=== PATIENT | female | born 2000 ===

== ENCOUNTER 2021-08-24 18:31 | Inpatient (IN) | payer MEDICAID, OTHER ==
[2021-08-24] MEDS ORDERED: ACETAMINOPHEN TAB 325 MG TAB PO PRN (18:41)
[2021-08-24] MEDS ORDERED: MAG HYDROX/AL HYDROX/SIMETH 30 ML CUP PO PRN (18:41)
[2021-08-24] MEDS ORDERED: HALOPERIDOL LACTATE 5 MG/ML 1 ML VIAL IM PRN (18:41)
[2021-08-24] MEDS ORDERED: MAGNESIUM HYDROXIDE 2,400 MG/10 ML CUP PO PRN (18:41)
[2021-08-24] MEDS ORDERED: LORazepam 2 MG/ML INJ IM PRN (18:43)
[2021-08-24] MEDS ORDERED: haloperidoL 5 MG TAB PO PRN (18:44)
[2021-08-25] MEDS: LORazepam 1 MG TAB PO PRN (00:40)
[2021-08-25 07:55] LABS: Basophils % (A) 1 %; Eosinophils # (A) 0.3 k/uL (0-0.7); Eosinophils % (A) 4 %; HGB 13.2 gm/dL (11.4-16.0); Lymphocytes # (A) 2.8 k/uL (1.0-4.8); Lymphocytes % (A) 42 %; MCH 29.3 pg (25.0-35.0); MCHC 30.6 g/dL (31.0-37.0); MCV 95.6 fL (80.0-100.0); Monocytes # (A) 0.5 k/uL (0-1.0); Monocytes % (A) 8 %; Neutrophils # (A) 2.9 k/uL (1.3-7.7); Neutrophils % (A) 43 %; Platelet Count 296 k/uL (150-450); RBC 4.49 m/uL (3.80-5.40); RDW 13.9 % (11.5-15.5); WBC 6.7 k/uL (3.8-10.6)
[2021-08-25 08:16] LABS: ALT 14 U/L (4-34); AST 27 U/L (14-36); African American GFR (CKD) >90 (>60 ml/min/1.73 sqM); Albumin 4.4 g/dL (3.5-5.0); Alkaline Phosphatase 62 U/L (38-126); Anion Gap 9 mmol/L; Blood Urea Nitrogen 12 mg/dL (7-17); Calcium 9.4 mg/dL (8.4-10.2); Carbon Dioxide 22 mmol/L (22-30); Chloride 106 mmol/L (98-107); Glucose 89 mg/dL (74-99); Non-African American GFR(CKD) >90 (>60 ml/min/1.73 sqM); Potassium 4.2 mmol/L (3.5-5.1); Sodium 137 mmol/L (137-145); Total Bilirubin 0.7 mg/dL (0.2-1.3)
[2021-08-25] MEDS ORDERED: NICOTINE 14MG/24HR PATCH TRANSDERM SCH (09:00)
[2021-08-25 14:06] VITALS: BMI 29.7
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
[2021-08-25] MEDS ORDERED: LORazepam 1 MG/0.5 ML VIAL IM PRN (14:42)
[2021-08-25] MEDS: SERTRALINE 50 MG TAB PO SCH (15:59)
[2021-08-25] MEDS: diphenhydrAMINE 25 MG CAP PO SCH (20:00)
[2021-08-26] MEDS ORDERED: MELATONIN 5 MG TABLET PO PRN (01:42)
--- NOTE | 2021-08-26 01:43 | P.CONS ---
History of Present Illness - Reason for Consult Consult date: 08/25/21 - History of Present Illness The patient is a 21-year-old female who had initially presented to [facility] for depression with suicidal ideation. The patient was transferred to [facility] mental health unit where she was seen and evaluated. The patient reports that she is quite upset about her living situation as she does not have a job and that she is currently staying with her cousin who she does not wish to stay with any longer. She requested medications for insomnia and for her ALLERGIES but denied any additional physical complaints. She denied smoking or alcohol or substance use. Denied experiencing fever, chills, chest pain, shortness of breath, nausea, vomiting, abdominal pain, diarrhea. Laboratory evaluation was reviewed and was unremarkable. Review of systems: Pertinent positives and negatives as discussed in HPI, a complete review of systems was performed and all other systems are negative. Physical examination: General: non toxic, no distress, appears at stated age, normal weight Derm: no unusual rashes/lesions, no unusual ecchymoses, warm, dry Head: atraumatic, normocephalic, symmetric Eyes: EOMI, no lid lag, anicteric sclera ENT: Nose and ears atraumatic, no thrush, no pharyngeal erythema Neck: trachea midline, supple Mouth: no lip lesion, mucus membranes moist Cardiovascular: S1S2 reg, no murmur, no edema Lungs: CTA bilateral, no rhonchi, no rales , no accessory muscle use Abdominal: soft, nontender to palpation, no guarding Ext: no gross muscle atrophy, no contractures, Neuro: No gross focal neuro deficits noted Psych: Alert, oriented, depressed affect Assessment/plan Insomnia and seasonal ALLERGIES -Melatonin and Claritin ordered Depression with suicidal ideation -As per psychiatry Thank you for allowing us to participate in the care of this patient. We will follow peripherally. Do not hesitate to contact us with questions. Someone can be reached from the [facility] hospitalist group at all hours of the day at [phone]. Past Medical History Past Medical History: No Reported History History of Any Multi-Drug Resistant Organisms: None Reported Past Surgical History: No Surgical Hx Reported Past Anesthesia/Blood Transfusion Reactions: No Reported Reaction Past Psychological History: Anxiety, Depression, PTSD Smoking Status: Never smoker Past Alcohol Use History: None Reported Past Drug Use History: None Reported - Past Family History Mother Family Medical History: COPD Medications and Allergies Allergies Allergy/AdvReac Type Severity Reaction Status Date / Time No Known Allergies Allergy Verified 08/24/21 18:40 Physical Exam Vitals: Vital Signs Temp Pulse Resp BP 08/25/21 01:24 97.4 F L 109 H 18 129/80 08/25/21 01:00 97.5 F L 109 H 16 124/80 Intake and Output 08/25/21 08/25/21 08/26/21 14:59 22:59 06:59 Other: Weight 76 kg Results CBC & Chem 7: 08/25/21 07:01 08/25/21 07:01 Labs: Abnormal Lab Results - Last 24 Hours (Table) 08/25/21 Range/Units 07:01 MCHC 30.6 L (31.0-37.0) g/dL
[2021-08-26] MEDS: LORATADINE 10 MG TAB PO PRN (08:42)
[2021-08-26] MEDS: SERTRALINE 50 MG TAB PO SCH (08:42)
--- NOTE | 2021-08-26 11:39 | P.PN ---
Progress Note - Text Progress Note Date: 08/26/21 Interval History: Patient was seen participating in activities group today and was directable and agreeable to speak with advertising copywriter in the office. Patient claims that she is still feeling depressed today. She claims that she is still having suicidal thoughts subtle thoughts however does not have any intent or plan. She states that she feels safer being in the hospital and continues to be focused on where she'll go upon discharge. She states that "my case managers can help". She states that she is also still having anxiety at this time. Continues to be fairly constricted in her affect and have monotone/soft tone of voice. She claims that she was able to sleep about 2-3 hours last night and states that it was not restful for her. At this time patient denies any homical ideations, intent or plan. Patient denies any auditory, visual hallucinations and denies any paranoia or delusions. Patient denies any side effects from the medications and has been compliant with meds. Mental Status Exam: General Appearance: Patient appears to be stated age is alert, directable however fairly vague and concrete. Patient appears to have ok hygiene and grooming. Behavior: Patient is seated without any agitated behavior. Vague/evasive, mildly Speech: Patient's speech is fluent and nonpressured. [place], monotone. Mood/Affect: Patient reports their mood is depressed and anxious, affect is congruent and constricted. Suicidality/Homicidality: Patient denies having any homicidal ideation intent or plan. She claims that she is having suicidal thoughts however no intent or plan. Perceptions: Patient denies any visual hallucinations and denies any auditory hallucinations Though content/process: [place], poverty of content. Memory and concentration: AOX3, grossly intact for the purposes of this session Judgment and insight: Chronically limited IMPRESSIONS: Major depressive disorder, without psychotic features Intellectual disability Plan: -Patient continues to meet criteria for inpatient psychiatric admission for symptom stabilization and safety. Patient has signed adult voluntary form and medication consent and was placed in patient's chart. -Medications: increase Zoloft 100 mg daily for mood/anxiety. continue with benadryl 25 mg daily at bedtime for insomnia. melatonin 6 mg qhs for insomnia. -When necessary Ativan and Haldol for agitation/aggression. -NRT - nicotine patch -SW on board for discharge planning. Encouraged the patient to participate in milieu. likely discharge early next week once we have a safe place for her discharge and patient is improving psychiatrically.
[2021-08-26] MEDS: diphenhydrAMINE 25 MG CAP PO SCH (20:47)
[2021-08-26] MEDS ORDERED: MELATONIN 3 MG TABLET PO SCH (21:00)
[2021-08-27] MEDS: SERTRALINE 100 MG TAB PO SCH (08:55)
--- NOTE | 2021-08-27 13:31 | P.PN ---
Progress Note - Text Progress Note Date: 08/27/21 Interval History: Patient was seen participating in activities group today and was directable and agreeable to speak with typewriter ribbon winder in the office. Patient claims that she is still feeling depressed today. She claims that she is still having suicidal thoughts and claims that she is nervousa and scared to go back to live with her cousin. She continues to be concrete and give poverty of content. She claims that the suicidal thoughts have been gradually improving. She states that she feels safe r being in the hospital and around other people. Continues to be fairly constricted in her affect and have monotone/soft tone of voice. She claims that she was able to sleep about 2 hours last night and states that she did not rest well, she was agreeable to have her Benadryl increased for tonight. At this time patient denies any homical ideations, intent or plan. Patient denies any auditory, visual hallucinations and denies any paranoia or delusions. Patient denies any side effects from the medications and has been compliant with meds. Mental Status Exam: General Appearance: Patient appears to be stated age is alert, directable however fairly vague and concrete. Patient appears to have ok hygiene and grooming. Behavior: Patient is seated without any agitated behavior. Vague/evasive, i mproving mildly Speech: Patient's speech is fluent and nonpressured. [place], monotone. Mood/Affect: Patient reports their mood is depressed and anxious, improving mildly, affect is congruent and constricted. Suicidality/Homicidality: Patient denies having any homicidal ideation intent or plan. She claims that she is having suicidal thoughts however no intent or plan, improving mildly. Perceptions: Patient denies any visual hallucinations and denies any auditory hallucinations Though content/process: [place], poverty of content. Memory and concentration: AOX3, grossly intact for the purposes of this session Judgment and insight: Chronically limited IMPRESSIONS: Major depressive disorder, without psychotic features Intellectual disability Plan: -Patient continues to meet criteria for inpatient psychiatric admission for symptom stabilization and safety. Patient has signed adult voluntary form and medication consent and was placed in patient's chart. -Medications: Zoloft 100 mg daily for mood/anxiety. Increase benadryl 50 mg daily at bedtime for insomnia -When necessary Ativan and Haldol for agitation/aggression. -NRT - nicotine patch -SW on board for discharge planning. Encouraged the patient to participate in milieu. likely discharge early next week once we have a safe place for her discharge and patient is improving psychiatrically.
[2021-08-27] MEDS: diphenhydrAMINE 50 MG CAP PO SCH (20:39)
[2021-08-28] MEDS: SERTRALINE 100 MG TAB PO SCH (09:16)
--- NOTE | 2021-08-28 13:30 | P.PN ---
Progress Note - Text Progress Note Date: 08/28/21 Clinical Problems: Major depressive disorder severe without psychotic features, intellectual disability Interim history: I reviewed the medical record and interviewed the patient. She complained of continued feelings depression and having thoughts of suicide. She was difficult to understand due to the volume of her speech but the suicidal ideation appeared to be wishes rather than cognitions about plan or intent. She did not articulate specific suicidal plan or intent. She perseve rated over her feelings of hopelessness and abandonment. The severity of depression has not improved since her admission to the unit. She alleged that she has felt depressed for the last 11 years since the of her mother. She is attending therapeutic groups and activities. She slept 6 hours last night. She said no episodes of behavioral dyscontrol. Mental status exam: She presented as a young the skin casually groomed after [place] female with long howie. She seldom made eye contact. During most of interview she looked at the floor. She had no distinguishing features or promin ent physical abnormalities. She had a sad facial expression. She was alert and oriented to person and place. She had psychomotor retardation and a slow but steady gait. Her speech was spontaneous with decreased volume and amount. She did not have articulation difficulties. Her affect was depressed and unreactive. As noted above, she expressed suicidal ideation and wishes. She denied homicidal ideation. He feels hopeless, helpless or worthless. She ruminates about her hopelessness. She did not express ideas of reference., Paranoid ideation or delusions. Her thinking is concrete but her associations were coherent, logical and goal directed. She denied hallucinations did not appear to responding to internal stimuli. Assessment: She is moderately mentally ill and minimally improve from admission. Plan: Continue inpatient treatment. Safety precautions. Continue Zoloft 100 mg daily. Begin Abilify 2 mg daily for augmentation of antidepressant treatment. Ativan and/or Haldol when necessary for agitation, aggression or acute psychosis. Encouraged continued participation in therapeutic groups and activities. Evaluate clinical status response to treatment daily basis.
[2021-08-28] MEDS: diphenhydrAMINE 50 MG CAP PO SCH (21:17)
[2021-08-28] MEDS: LORazepam 1 MG TAB PO PRN (22:31)
[2021-08-29] MEDS: SERTRALINE 100 MG TAB PO SCH (08:36)
[2021-08-29] MEDS: ARIPiprazole 2 MG TAB PO SCH (08:36)
--- NOTE | 2021-08-29 12:08 | P.PN ---
Progress Note - Text Progress Note Date: 08/29/21 Clinical Problems: Major depressive disorder severe without psychotic features, intellectual disability Interim history: I reviewed the medical record and interviewed the patient. She would not get out of bed for the interview. She complained that she is tired and fatigued. She did not attend therapeutic group activities yesterday or today so far. She spends her time in bed seldom interacting with staff or peers. She slept 6 hours last night. She said no episodes of behavioral dyscontrol. Mental status exam: She presented as a young the skin casually groomed after Italian female with long howie. She did not make eye contact. She refused bed and spoke little. Her affect was depressed and unreactive. She ruminates about her hopelessness. She did not appear paranoid and confused but I could not fully evaluate her thought process. She did not appear to responding to in ternal stimuli. Assessment: She is moderately mentally ill and minimally improve from admission. She may be more sedated from the initial dose of Abilify. Plan: Continue inpatient treatment. Safety precautions. Continue Zoloft 100 mg daily. Continue Abilify 2 mg daily for augmentation of antidepressant treatment. Ativan and/or Haldol when necessary for agitation, aggression or acute psychosis. Encouraged continued participation in therapeutic groups and activities. Evaluate clinical status response to treatment daily basis.
[2021-08-29] MEDS: diphenhydrAMINE 50 MG CAP PO SCH (21:23)
[2021-08-29] MEDS: LORazepam 1 MG TAB PO PRN (21:59)
[2021-08-30] MEDS: SERTRALINE 100 MG TAB PO SCH (08:39)
[2021-08-30] MEDS: ARIPiprazole 2 MG TAB PO SCH (08:39)
[2021-08-30] MEDS ORDERED: SERTRALINE 50 MG TAB PO STA (10:00)
--- NOTE | 2021-08-30 11:42 | P.PN ---
Progress Note - Text Progress Note Date: 08/30/21 Interval History: Patient was seen participating in activities group today and was directable and agreeable to speak with investigative writer in the office. Patient continues to have poverty of content. She was fairly concrete during conversation. She continues to focus on not wanting to be discharged to her cousin's house. She states that she'd rather go to a jail at this time. She claims that she still feeling depressed and endorsed suicidal thoughts however no intent or plan today. She is denying any homicidal ideations today. She states that she slept fairly last night and through the weekend. Denies any side effects from medications. Continues to be fairly constricted in her affect and have monotone/soft tone of voice. At this time patient denies any homical ideations, intent or plan. Patient denies any auditory, visual hallucinations and denies any paranoia or delusions. Patient denies any side effects from the medications and has been compliant with meds. Mental Status Exam: General Appearance: Patient appears to be stated age is alert, directable however fairly vague and concrete. Patient appears to have ok hygiene and grooming. Behavior: Patient is seated without any agitated behavior. Vague/evasive Speech: Patient's speech is fluent and nonpressured. [place], monotone. Mood/Affect: Patient reports their mood is depressed and anxious, improving mildly, affect is congruent and constricted. Suicidality/Homicidality: Patient denies having any homicidal ideation intent or plan. She claims that she is having suicidal thoughts however no intent or plan, improving mildly. Perceptions: Patient denies any visual hallucinations and denies any auditory hallucinations Though content/process: [place], poverty of content. Memory and concentration: AOX3, grossly intact for the purposes of this session Judgment and insight: Chronically limited IMPRESSIONS: Major depressive disorder, without psychotic features Intellectual disability Plan: -Patient continues to meet criteria for inpatient psychiatric admission for symptom stabilization and safety. Patient has signed adult voluntary form and medication consent and was placed in patient's chart. -Medications: increase Zoloft 150 mg daily for mood/anxiety. continue with abiilify 2 mg daily for mood adjunct. benadryl 50 mg daily at bedtime for insomnia -When necessary Ativan and Haldol for agitation/aggression. -NRT - nicotine patch -SW on board for discharge planning. Encouraged the patient to participate in milieu. likely discharge tomorrow back to cousins home as they are her gaurdian.
[2021-08-30] MEDS ORDERED: LORazepam 2 MG/ML INJ IM PRN (18:34)
[2021-08-30 20:30] VITALS: RESP 16
[2021-08-30] MEDS: diphenhydrAMINE 50 MG CAP PO SCH (20:30)
[2021-08-30] MEDS: LORATADINE 10 MG TAB PO PRN (20:31)
[2021-08-30] MEDS: LORazepam 1 MG TAB PO PRN (21:44)
[2021-08-31 07:15] VITALS: BP 120/71; PULSE 86; TEMP 98.3
[2021-08-31] MEDS: ARIPiprazole 2 MG TAB PO SCH (08:30)
[2021-08-31] MEDS ORDERED: SERTRALINE 50 MG TAB PO SCH (09:00)
--- NOTE | 2021-08-31 10:02 | P.DS ---
Providers Date of admission: 08/25/21 00:13 Expected date of discharge: 08/31/21 Attending physician: Allen Mcgarry MD Consults: 08/24/21 18:41 Consult Physician Routine Consulting Provider: Anh Mendez Consult Reason/Comments: history and physical Do you want consulting provider notified?: Yes Primary care physician: Stated None - Discharge Diagnosis(es) (1) Major depressive disorder without psychotic features Current Visit: Yes Status: Acute Priority: High (2) Intellectual disability Current Visit: Yes Status: Acute Priority: Medium Hospital Course: Admission HPI: Admission note was completed by senior mortgage underwriter "Patient is a 21-year-old, - [place] female, currently homeless, unemployed single. Patient presented to the hospital as a transfer from [facility]. Patient was transferred on a petition states the patient was depressed suicidal with a plan to starve herself. Patient has a history of developmental delay. The patient was seen today and agreeable to speak to senior mortgage underwriter. She states that she was recently discharged from [facility] on medications however she does not member which ones she was on. She states that she was on antidepressants. She claims that she was feeling mainly suicidal because she didn't want to go to live with her cousin. She was fairly concrete, vague/guarded and had a soft tone of voice. Was also displaying poverty of content. She claims that her cousin is "abusive" however did not mention any other details. She states she's been feeling suicidal for and is now feeling it for the past couple of weeks. She states that she had a plan to stab herself. She does not have access to knives. She claims that she is feeling depressed and anxious. She is claiming that she is having suicidal thoughts at this time however no intent or plan on the unit. She is denying any homicidal ideations at this time. She states her sleep has been poor however her appetite is fair. At this time patient denies any auditory or visual hallucinations. Patient denies any flight of ideas racing thoughts and increased in goal directed behavior. Patient admits to using no recreational drugs or substances." Hospital course: Upon admission to the unit patient was directable and agreeable to commence treatment and signed adult voluntary form . Patient got along well with other patients on the unit and followed unit protocol. Patient was compliant with the medications and denied any side effects throughout hospital course. Patient was started on Zoloft and increased to a dose of 150 mg daily for mood/anxiety, Benadryl increased to a dose of 50 mg daily at bedtime for insomnia. Patient was also started on Abilify 2 mg daily for mood adjunct. Patient spoke of her stressors and engaged in therapy both group and individual. Patient was also seen by medical team for history and physical exam. Throughout the course of the hospitalization patient gradually improved with regards to mood, anxiety, sleep and returned back to their baseline level of functioning. On the day of discharge patient denied any suicidal or homicidal ideations intent or plan denied any auditory or visual hallucinations. Patient endorsed wanting to live for her future and her health. The patient denied any access to guns or weapons. Patient denied any paranoia and did not endorse any delusions. Patient does not have a significant history of substance abuse and was counseled on abstaining from all substances including alcohol and marijuana. Patient was also counseled on the medications and need for regular compliance and was encouraged to follow-up with their outpatient appointment for mental health and also for primary care. Prior to discharge a family meeting will be arranged by child protective services social worker to answer any questions and ensure safety upon discharge. Patient's cousin is her guardian and patient will be discharged back to her house at this time. Mental status exam: General Appearance: Patient appears to be stated age is alert, pleasant, and cooperative. Patient is in no acute distress and has improved hygiene and grooming Behavior: Patient is calmly seated without any agitated behavior. Speech: Patient's speech is fluent and nonpressured. Horseheads and monotone Mood/Affect: Patient reports their mood is "ok", affect is congruent and constricted Suicidality/Homicidality: Patient denies having any suicidal or homicidal ideation intent or plan. Perceptions: Patient denies any auditory or visual hallucinations. Though content/process: There is no evidence of any delusional thought content and thought process is linear and goal-directed. Horseheads Memory and concentration: AOX3, grossly intact for the purposes of this session. Can spell "WORLD" backwards correctly. Judgment and insight: chronically poor, however has improved with guarded prognosis Impression: Major depressive disorder, without psychotic features Intellectual disability Plan: -Continue with discharge today as patient has improved and stabilized psychiatrically and is not currently an imminent threat to herself and/or others. Patient will remain at chronically elevated risk for harm to self and/or others due to her impulsivity and chronically poor insight and judgment. -Continue medications: Zoloft 150 mg daily for mood/anxiety, Abilify 2 mg daily for mood adjunct, Benadryl 50 mg daily at bedtime for insomnia. -Patient was counseled on the need for medication compliance and appropriate follow-up at mental health and also primary care for medical issues. Patient verbalized understanding and agreed. -Social work to arrange for and conduct family meeting to ensure safety upon discharge and answer any questions/concerns. Social work also to arrange for patients follow up appointments for psychiatric care along with follow up with primary care provider. -Patient counseled on abstaining from recreational drugs and marijuana and alcohol. Was informed/educated on the adverse effects on their physical and mental health. Patient verbally agreed and understood. -Patient was instructed to return to the hospital or seek immediate medical care if their psychiatric or medical symptoms do worsen or reoccur. Allergies Allergy/AdvReac Type Severity Reaction Status Date / Time No Known Allergies Allergy Verified 08/24/21 18:40 Laboratory Results WBC 6.7 k/uL (3.8-10.6) 08/25/21 07:01 RBC 4.49 m/uL (3.80-5.40) 08/25/21 07:01 Hgb 13.2 gm/dL (11.4-16.0) 08/25/21 07:01 Hct 43.0 % (34.0-46.0) 08/25/21 07:01 MCV 95.6 fL (80.0-100.0) 08/25/21 07:01 MCH 29.3 pg (25.0-35.0) 08/25/21 07:01 MCHC 30.6 g/dL (31.0-37.0) L 08/25/21 07:01 RDW 13.9 % (11.5-15.5) 08/25/21 07:01 Plt Count 296 k/uL (150-450) 08/25/21 07:01 MPV 7.0 08/25/21 07:01 Neutrophils % 43 % 08/25/21 07:01 Lymphocytes % 42 % 08/25/21 07:01 Monocytes % 8 % 08/25/21 07:01 Eosinophils % 4 % 08/25/21 07:01 Basophils % 1 % 08/25/21 07:01 Neutrophils # 2.9 k/uL (1.3-7.7) 08/25/21 07:01 Lymphocytes # 2.8 k/uL (1.0-4.8) 08/25/21 07:01 Monocytes # 0.5 k/uL (0-1.0) 08/25/21 07:01 Eosinophils # 0.3 k/uL (0-0.7) 08/25/21 07:01 Basophils # 0.0 k/uL (0-0.2) 08/25/21 07:01 Sodium 137 mmol/L (137-145) 08/25/21 07:01 Potassium 4.2 mmol/L (3.5-5.1) 08/25/21 07:01 Chloride 106 mmol/L (98-107) 08/25/21 07:01 Carbon Dioxide 22 mmol/L (22-30) 08/25/21 07:01 Anion Gap 9 mmol/L 08/25/21 07:01 BUN 12 mg/dL (7-17) 08/25/21 07:01 Creatinine 0.54 mg/dL (0.52-1.04) 08/25/21 07:01 Est GFR (CKD-EPI)AfAm >90 (>60 ml/min/1.73 sqM) 08/25/21 07:01 Est GFR (CKD-EPI)NonAf >90 (>60 ml/min/1.73 sqM) 08/25/21 07:01 Glucose 89 mg/dL (74-99) 08/25/21 07:01 Calcium 9.4 mg/dL (8.4-10.2) 08/25/21 07:01 Total Bilirubin 0.7 mg/dL (0.2-1.3) 08/25/21 07:01 AST 27 U/L (14-36) 08/25/21 07:01 ALT 14 U/L (4-34) 08/25/21 07:01 Alkaline Phosphatase 62 U/L (38-126) 08/25/21 07:01 Total Protein 8.0 g/dL (6.3-8.2) 08/25/21 07:01 Albumin 4.4 g/dL (3.5-5.0) 08/25/21 07:01 TSH 4.490 mIU/L (0.465-4.680) 08/25/21 07:01 Vital Signs Temp 98.3 F 08/31/21 07:14 Pulse 86 08/31/21 07:14 Resp 16 08/30/21 20:29 BP 120/71 08/31/21 07:14 Pulse Ox 98 08/30/21 20:29 FiO2 Patient Condition at Discharge: Stable Plan - Discharge Summary Discharge Rx Participant: No New Discharge Prescriptions: New ARIPiprazole [Abilify] 2 mg PO DAILY 30 Days tab diphenhydrAMINE [Benadryl] 50 mg PO HS 30 Days cap Loratadine [Claritin] 5 mg PO Q12HR PRN tab PRN Reason: Allergy Symptoms Sertraline [Zoloft] 150 mg PO DAILY 30 Days tab Discharge Medication List ARIPiprazole [Abilify] 2 mg PO DAILY 30 Days tab 08/31/21 [Rx] Loratadine [Claritin] 5 mg PO Q12HR PRN tab 08/31/21 [Rx] Sertraline [Zoloft] 150 mg PO DAILY 30 Days tab 08/31/21 [Rx] diphenhydrAMINE [Benadryl] 50 mg PO HS 30 Days cap 08/31/21 [Rx] Follow up Appointment(s)/Referral(s): [facility] [Other] - 09/08/21 10:00 am (With Kristine Angel- [facility] (camera)) Activity/Diet/Wound Care/Special Instructions: Avoid the use of street drugs and alcohol. Take all prescriptions as prescribed. When you are in need of refills on your medications, please contact your medical provider and/or outpatient psychiatrist to have this done. Please go to scheduled outpatient appointment for aftercare treatment. If symptoms return or become worse, call the crisis line at and/or go to the nearest emergency room for evaluation. Discharge Disposition: HOME SELF-CARE
== END 2021-08-31 15:00 | disposition home or self-care (01) | DRG 885 ==
LOC: 3MHU 08-25 00:13
PROVIDERS: ADMIT Psychiatry & Neurology Psychiatry; ATTEND Psychiatry & Neurology Psychiatry
DX: F32.2 Major depressive disorder, single episode, severe without psychotic features (principal); R45.851 Suicidal ideations; F43.10 Post-traumatic stress disorder, unspecified; F79 Unspecified intellectual disabilities; G47.00 Insomnia, unspecified; J30.2 Other seasonal allergic rhinitis; F41.9 Anxiety disorder, unspecified; Z56.0 Unemployment, unspecified; Z59.00 Homelessness unspecified; Z63.4 Disappearance and death of family member; Z79.899 Other long term (current) drug therapy; Z82.5 Family history of asthma and other chronic lower respiratory diseases; Z28.21 Immunization not carried out because of patient refusal
CPT/HCPCS: 80053; 84443; 85025